=== PATIENT | female | born 1995 | race Caucasian/White ===

== ENCOUNTER 2018-09-05 05:00 | Day surgery (SDC) | payer MEDICAID ==
[2018-09-01 11:56] LABS: BASOPHILS 0.5 % (0-2); EOSINOPHILS 1.8 % (0-7); HEMATOCRIT 40.9 % (36.0-48.0); HEMOGLOBIN 13.6 g/dL (12-16); IMMATURE GRANULOCYTES 0.5 % (0-5); LYMPHOCYTES 33.2 % (15-50); MCH 28.5 pg (26.0-34.0); MCHC 33.3 g/dL (31.0-37.0); MCV 85.6 fL (80.0-100.0); MEAN PLATELET VOLUME 10.2 fL (7.4-10.4); MONOCYTES 5.5 % (2-11); NEUTROPHILS 58.5 % (40-80); PLATELET COUNT 228 10x3/uL (130-400); RBC 4.78 10x6/uL (4.00-5.40); RDW 13.6 % (11.5-14.5)
[~2018-09-05] VITALS: Ht 154.9 cm; Wt 63.0 kg
[~2018-09-05 05:00] MED LIST: CARAFATE1 G PO; CELEXA20 MG PO; XANAX0.25 MG PO
[2018-09-05 06:15] VITALS: BP 114/68; Ht 154.9 cm; Wt 63.0 kg
[2018-09-05 06:38] LABS: HCG URINE NEGATIVE (NEGATIVE)
--- NOTE | 2018-09-05 08:30 | NUR ---
REC'D FROM [facility]. FAMILY AT BEDSIDE. INCISIONS CDI. CRANBERRY JUICE TAKEN TO PT.
--- NOTE | 2018-09-05 09:47 | NUR ---
D/C INSTRUCTIONS REVIEWED WITH PT AT THIS TIME, PT VERBALIZES UNDERSTANDING. PT ABLE TO VOID PRIOR TO DISCHARGE, PT IV D/C INTACT, NO REDNESS OR SWELLING NOTED AT SITE.
--- NOTE | 2018-09-05 11:14 | NUR ---
PT LEFT UNIT AT 1054 IN WC.
--- NOTE | 2018-09-05 17:16 | OP ---
PATIENT NAME: EMANI CATRER MEDICAL RECORD: [id number] :93 LOCATION:D[facility] ADMISSION DATE: SURGEON: JOSE MANUEL RICHARD MD DATE OF OPERATION: 09/05/2018 PREOPERATIVE DIAGNOSIS: Undesired fertility. POSTOPERATIVE DIAGNOSIS: Undesired fertility. PROCEDURE PERFORMED: 1. Diagnostic laparoscopy. 2. Bilateral tubal occlusion using Falope ring. SURGEON: Jose Manuel Richard MD OUTBOUND SALES CONSULTANT: Junior Bolivar ANESTHESIOLOGIST: Dr. Vargas ANESTHESIA: General anesthetic with endotracheal intubation. FINDINGS: Uterus is unremarkable as well as both ovaries and tubes. What was visualized of the abdominal anatomy reveals right upper quadrant adhesions, otherwise all remaining anatomy is unremarkable. SPECIMENS REMOVED: None. ESTIMATED BLOOD LOSS: Minimal. FLUIDS: 500 cc. URINE OUTPUT: Quantity sufficient prior to the procedure, void. COMPLICATIONS: None. DRAINS: None. INDICATIONS: The patient is a 23-year-old multiparous female who has been given alternatives to tubal ligation. The patient understands risks and benefits of this procedure as well as the possibility of failure of 1 in 100 with an increased chance of an ectopic gestation if was to occur. DESCRIPTION OF PROCEDURE: After informed consent was assured, the patient was taken to the operating room where anesthetic was obtained. The patient was now prepped and draped. An incision was made at the umbilicus to accommodate a 5-mm trocar. This trocar was inserted, pneumoperitoneum developed. An accessory trocar was placed 2 fingerbreadths above the symphysis. Through this 8-mm trocar, a blunt probe was used to sweep the bowel free of the pelvis and with the patient in Trendelenburg position, expose both right and left fallopian tubes. The Falope ring applicator was double loaded and inserted. The left tube was followed to its fimbriated end and then a ring applied to the isthmic portion of the left tube. Good crease formation and blanching. This was repeated on the contralateral side. Again, the tube was followed to its fimbriated end and a Falope ring placed on the isthmic portion of the tube. Good blanching and crease formations noted. Marcaine was placed directly over OPERATIVE REPORT [id number] EMANI CARTER both occlusion sites. The pneumoperitoneum was released and the trocars were removed. Skin was reapproximated with subcuticular stitch. TRANSINT:[id number] Voice Confirmation ID: [id number] DOCUMENT ID: [id number] JOSE MANUEL RICHARD MD at 1716 CC: [id number] DICTATION DATE: 09/05/18749 [employer] WORKER: 09/05/18 0833 [facility] 09/05/18 [place] [id number] [place] [id number]
== END 2018-09-05 10:54 | disposition home or self-care (01) ==
LOC: D.OPS 05:00
PROVIDERS: Obstetrics & Gynecology
DX: Z30.2 Encounter for sterilization (principal); Z01.812 Encounter for preprocedural laboratory examination